=== PATIENT | male | born 1955 | race Caucasian/White ===

== ENCOUNTER → 2024-07-02 | Outpatient (CLI) | payer MEDICARE, MEDICAID, SELFPAY ==
--- NOTE | 2024-07-02 08:30 | XR_ITS ---
Examination: Abdomen sonogram, complete Date and time of exam: July 02, 2024 0856 hours INDICATIONS: Diagnosis thrombocytopenia unspecified. Technique: Multiple real-time grayscale transabdominal sonographic images of the abdomen have been obtained. Findings: Gallbladder obscured by bowel gas Common bile duct 0.6 cm Pancreatic head 2.9 cm middle and distal aorta visualized not enlarged Liver 14.5 cm with nodular contour fatty infiltration no focal liver lesions Normal hepatopedal portal venous flow Patent IVC Right kidney 11.8 x 6.7 x 6.3 cm cortex 3.2 cm Left kidney 11.9 x 5.2 x 5.4 cm cortex 2.2 cm Moderate bilateral renal parenchymal scar formation No hydronephrosis Splenomegaly 16.9 cm IMPRESSION: Primary hepatocellular disease versus cirrhosis Moderate bilateral renal parenchymal scar formation Significant splenomegaly
== END | disposition home or self-care (01) ==
LOC: CDIM 08:13
PROVIDERS: PCP Physician Assistant; Referring Provider Nurse Practitioner Family; Visit Provider Nurse Practitioner Family
DX: N28.89 Other specified disorders of kidney and ureter (principal); R16.1 Splenomegaly, not elsewhere classified
CPT/HCPCS: 76700

== ENCOUNTER → 2024-11-02 | Outpatient (CLI) | payer OTHER, MEDICAID, SELFPAY ==
--- NOTE | 2024-11-02 15:48 | XR_ITS ---
Examination: Hand, right 3 views Technique: Hand AP, oblique, lateral 3 views Date and time of exam: October 25, 2024 1554 hours INDICATIONS: Right hand pain beginning 6 months ago FINDINGS: Moderate narrowing radiocarpal joint Advanced narrowing second and third metacarpophalangeal joints Advanced osteoarthritis interphalangeal joint first digit Moderate to advanced osteoarthritis distal interphalangeal joints second through fifth digits most prominent third digit with prominent osteophyte formation distal interphalangeal joint third digit No fractures IMPRESSION: Significant osteoarthritis as above
== END | disposition home or self-care (01) ==
PROVIDERS: PCP Physician Assistant; Referring Provider Physician Assistant; Visit Provider Physician Assistant
DX: M19.041 Primary osteoarthritis, right hand (principal)
CPT/HCPCS: 73130